=== PATIENT | female | born 2000 | race Caucasian/White ===

== ENCOUNTER 2020-10-24 18:41 | Emergency (ER) | payer MEDICARE, MEDICAID ==
[~2020-10-24] VITALS: Ht 167.7 cm; Wt 86.2 kg
[2020-10-24] MEDS ORDERED: KETOROLAC 30 MG/ML VIAL IVP ONE (19:15)
[2020-10-24] MEDS ORDERED: LACTATED RINGERS 1,000 ML IV ONE (19:15)
[2020-10-24 19:17] LABS: BASOPHILS # (AUTO) 0.1 10^3/uL (0.0-0.1); BASOPHILS % (AUTO) 1 % (0-10); EOSINOPHILS # (AUTO) 0.7 10^3/uL (0.0-0.3); EOSINOPHILS % (AUTO) 8 % (0-10); HEMATOCRIT 41 % (35-52); HEMOGLOBIN 13.9 g/dL (11.5-16.0); LYMPHOCYTES # (AUTO) 3.5 10^3/uL (1.0-4.0); LYMPHOCYTES % (AUTO) 40 % (12-44); MEAN CORPUSCULAR HEMOGLOBIN 31 pg (25-34); MEAN CORPUSCULAR HGB CONC 34 g/dL (32-36); MEAN CORPUSCULAR VOLUME 91 fL (80-99); MEAN PLATELET VOLUME 9.8 fL (9.0-12.2); MONOCYTES # (AUTO) 0.9 10^3/uL (0.0-1.0); MONOCYTES % (AUTO) 10 % (0-12); NEUTROPHILS # (AUTO) 3.6 10^3/uL (1.8-7.8); NEUTROPHILS % (AUTO) 41 % (42-75); PLATELET COUNT 269 10^3/uL (130-400); WHITE BLOOD COUNT 8.7 10^3/uL (4.3-11.0)
[2020-10-24] MEDS ORDERED: FAMOTIDINE 20MG/2ML IV (PEPCID) IV STA (19:19)
--- NOTE | 2020-10-24 19:19 | ED Chest Pain ---
General Chief Complaint: Chest Pain Stated Complaint: CHEST PAIN/LEG PAIN Source: patient Exam Limitations: no limitations History of Present Illness Date Seen by Provider: Oct 24, 2020 Time Seen by Provider: 18:55 Initial Comments Patient to the ER by private conveyance with chief complaint that she is having chest pain for the past 1 to 2 years substernal left-sided reproducible to direct palpation and deep inspiration. No cough but some mild shortness of air. No fever chills or sick contacts lately. Her symptoms have only mildly progressed recently. She has no history of asthma COPD or heart disease. She also has noted fast heart rate in the past but has never sought a primary care doctor to get this worked up. She also was having some leg pain in her left femur at the site of a prior surgery where she had a bone tumor taken out about 6 years ago. She says it has hurt ever since pretty much every single day. She is tried ibuprofen Tylenol and [place] balm with no benefit. She does see a psychiatrist and she knew where she lives but is looking to move to [place] and wanted to come here to get checked out so she can get established and find a doctor in [place] when she moves here. Her psychiatrist thought maybe some of her chest wall pain was related to her medications so they stopped them however pain did not go away. She is on Seroquel. Allergies and Home Medications Allergies Coded Allergies: ceftriaxone (Verified Adverse Reaction, Unknown, mono rash, 10/24/20) Patient Home Medication List Home Medication List Reviewed: Yes Review of Systems Review of Systems Constitutional: No chills, No fever, No malaise EENTM: No Blurred Vision, No Double Vision Respiratory: Denies Cough; Shortness of Air Cardiovascular: Chest Pain; Denies Edema, Denies Lightheadedness Gastrointestinal: Denies Constipated, Denies Diarrhea, Denies Nausea Genitourinary: Denies Burning, Denies Discharge Musculoskeletal: No back pain, No joint pain Psychiatric/Neurological: Denies Anxiety, Denies Depressed All Other Systems Reviewed Negative Unless Noted: Yes Past [id number] Hx Patient Social History Alcohol Use: Denies Use Drug of Choice: Denies Smoking Status: Current Everyday Smoker Type Used: Cigarettes (Quarter pack per day) Physical Exam Vital Signs Vital Signs - First Documented 10/24/20 18:56 Temp 35.9 Pulse 115 Resp 18 B/P (MAP) 141/88 (105) Pulse Ox 98 O2 Delivery Room Air Capillary Refill : Height, Weight, BMI Height: '" Weight: lbs. oz. kg; BMI Method: General Appearance: No Apparent Distress, WD/WN HEENT: PERRL/EOMI, Pharynx Normal, Moist Mucous Membranes Neck: Full Range of Motion, Normal Inspection Respiratory: No Chest Non Tender (Chest wall is tender and reproduces symptoms on direct palpation over the left anterior chest); Lungs Clear, Normal Breath Sounds, No Accessory Muscle Use, No Respiratory Distress Cardiovascular: Regular Rate, Rhythm, No Edema, Normal Peripheral Pulses Gastrointestinal: Normal Bowel Sounds, No Organomegaly Neurologic/Psychiatric: Alert, Oriented x3 Skin: Normal Color, Warm/Dry Progress/Results/Core Measures Results/Orders Lab Results Laboratory Tests Test 10/24/20 19:10 10/24/20 19:13 Range/Units White Blood Count 8.7 4.3-11.0 10^3/uL Red Blood Count 4.50 3.80-5.11 10^6/uL Hemoglobin 13.9 11.5-16.0 g/dL Hematocrit 41 35-52 % Mean Corpuscular Volume 91 80-99 fL Mean Corpuscular Hemoglobin 31 25-34 pg Mean Corpuscular Hemoglobin Concent 34 32-36 g/dL Red Cell Distribution Width 12.1 10.0-14.5 % Platelet Count 269 130-400 10^3/uL Mean Platelet Volume 9.8 9.0-12.2 fL Immature Granulocyte % (Auto) 0 % Neutrophils (%) (Auto) 41 L 42-75 % Lymphocytes (%) (Auto) 40 12-44 % Monocytes (%) (Auto) 10 0-12 % Eosinophils (%) (Auto) 8 0-10 % Basophils (%) (Auto) 1 0-10 % Neutrophils # (Auto) 3.6 1.8-7.8 10^3/uL Lymphocytes # (Auto) 3.5 1.0-4.0 10^3/uL Monocytes # (Auto) 0.9 0.0-1.0 10^3/uL Eosinophils # (Auto) 0.7 H 0.0-0.3 10^3/uL Basophils # (Auto) 0.1 0.0-0.1 10^3/uL Immature Granulocyte # (Auto) 0.0 0.0-0.1 10^3/uL Sodium Level 141 135-145 MMOL/L Potassium Level 3.9 3.6-5.0 MMOL/L Chloride Level 108 H 98-107 MMOL/L Carbon Dioxide Level 22 21-32 MMOL/L Anion Gap 11 5-14 MMOL/L Blood Urea Nitrogen 13 7-18 MG/DL Creatinine 0.82 0.60-1.30 MG/DL Estimat Glomerular Filtration Rate > 60 BUN/Creatinine Ratio 16 Glucose Level 110 H 70-105 MG/DL Calcium Level 8.8 8.5-10.1 MG/DL Corrected Calcium 8.5 8.5-10.1 MG/DL Total Bilirubin 0.2 0.1-1.0 MG/DL Aspartate Amino Transf (AST/SGOT) 17 5-34 U/L Alanine Aminotransferase (ALT/SGPT) 24 0-55 U/L Alkaline Phosphatase 66 40-136 U/L C-Reactive Protein High Sensitivity 0.25 0.00-0.50 MG/DL Total Protein 6.6 6.4-8.2 GM/DL Albumin 4.4 3.2-4.5 GM/DL Urine Color YELLOW Urine Clarity CLEAR Urine pH 6.0 5-9 Urine Specific Sandwich 1.025 H 1.016-1.022 Urine Protein NEGATIVE NEGATIVE Urine Glucose (UA) NEGATIVE NEGATIVE Urine Ketones TRACE H NEGATIVE Urine Nitrite NEGATIVE NEGATIVE Urine Bilirubin NEGATIVE NEGATIVE Urine Urobilinogen 0.2 < = 1.0 MG/DL Urine Leukocyte Esterase NEGATIVE NEGATIVE Urine RBC (Auto) NEGATIVE NEGATIVE Urine RBC NONE /HPF Urine WBC NONE /HPF Urine Squamous Epithelial Cells 2-5 /HPF Urine Crystals NONE /LPF Urine Bacteria TRACE /HPF Urine Casts NONE /LPF Urine Mucus SMALL H /LPF Urine Culture Indicated NO Urine Opiates Screen NEGATIVE NEGATIVE Urine Oxycodone Screen NEGATIVE NEGATIVE Urine Methadone Screen NEGATIVE NEGATIVE Urine Propoxyphene Screen NEGATIVE NEGATIVE Urine Barbiturates Screen NEGATIVE NEGATIVE Ur Tricyclic Antidepressants Screen NEGATIVE NEGATIVE Urine Phencyclidine Screen NEGATIVE NEGATIVE Urine Amphetamines Screen NEGATIVE NEGATIVE Urine Methamphetamines Screen NEGATIVE NEGATIVE Urine Benzodiazepines Screen NEGATIVE NEGATIVE Urine Cocaine Screen NEGATIVE NEGATIVE Urine Cannabinoids Screen NEGATIVE NEGATIVE My Orders Orders - MONALISA LEONE Ekg Tracing (10/24/20 18:49) Continuous Ekg Monitoring (10/24/20 18:49) Ua Culture If Indicated (10/24/20 18:49) Urine Bedside (10/24/20 18:49) Cbc With Automated Diff (10/24/20 19:09) Comprehensive Metabolic Panel (10/24/20 19:09) Hs C Reactive Protein (10/24/20 19:09) Chest 1 View, Ap/Pa Only (10/24/20 19:09) Ed Iv/Invasive Line Start (10/24/20 19:12) Lactated Ringers (Lr 1000 Ml Iv Solution (10/24/20 19:15) Drug Screen Stat (Urine) (10/24/20 19:12) Ketorolac Injection (Toradol Injection) (10/24/20 19:15) Lidocaine 2% Viscous 15 Ml (Xylocaine Vi (10/24/20 19:30) Antacid Suspension (Mylanta Suspension (10/24/20 19:30) Famotidine Injection (Pepcid Injection) (10/24/20 19:19) Gabapentin Capsule/Tablet (Neurontin Cap (10/24/20 20:00) Medications Given in ED Current Medications Medications Dose Ordered Sig/Earline Route Start Time Stop Time Status Last Admin Dose Admin Al Hydrox/Mg Hydrox/Simethicone 30 ml ONCE ONCE PO 10/24/20 19:30 10/24/20 19:31 DC 10/24/20 19:34 30 ML Gabapentin 200 mg ONCE ONCE PO 10/24/20 20:00 10/24/20 20:01 DC 10/24/20 20:33 200 MG Ketorolac Tromethamine 30 mg ONCE ONCE IVP 10/24/20 19:15 10/24/20 19:16 DC 10/24/20 19:34 30 MG Lactated Ringer's 1,000 ml @ 0 mls/hr Q0M ONCE IV 10/24/20 19:15 10/24/20 19:16 DC 10/24/20 19:33 0 MLS/HR Lidocaine HCl 15 ml ONCE ONCE PO 10/24/20 19:30 10/24/20 19:31 DC 10/24/20 19:34 15 ML Vital Signs/I&O 10/24/20 10/24/20 18:56 18:56 Temp 35.9 Pulse 115 Resp 18 B/P (MAP) 141/88 (105) Pulse Ox 98 O2 Delivery Room Air Room Air Progress Progress Note #1: Time: 19:17 Progress Note We will try a GI cocktail for her chest pain and some Toradol for her leg pain. We will try to give her some fluids for her sinus tachycardia seen on EKG. Several years of pain points more towards a costochondritis scenario. We will get some labs to rule out myocarditis or other more acute syndromes since she says it has progressed here recently. We have strongly encouraged her to follow-up with primary care to further explore this. Progress Note #2: Time: 20:01 Progress Note GI cocktail did not help her chest pain and Toradol did not help her chest or he r leg. Suspect there could be some component of fibromyalgia to this pain since it is so recalcitrant to treatment. Still her chest pain seems to be costochondritis. Labs and EKG are normal. Plan to dose her with gabapentin 200 mg. Her heart rate has significantly improved after about 250 cc of fluid. We will let her get the rest of her liter of fluid she is down to the 80s now. She is quietly texting on her phone and rates her pain still as an 8 out of 10. If the gabapentin does not help in the next step would be to have her follow-up with a primary care doctor. Initial ECG Impression Date: Oct 24, 2020 Initial ECG Impression Time: 18:58 Initial ECG Rate: 120 Initial ECG Rhythm: S.Tach Initial ECG Intervals: QT (478) Initial ECG Impression: Normal, Nonspecific Changes Initial ECG Comparisson: No Previous ECG Available Comment Sinus tachycardia without clinically relevant ST elevation or depression. Diagnostic Imaging Diagonstic Imaging: Xray Plain Films/CT/US/NM/MRI: chest (1v) Comments NAME: [facility] REC#: [id number] PT STATUS: REG ER : 2000 PHYSICIAN: MONALISA LEONE MD ADMIT DATE: 10/24/20/ER Draft Date of Exam:10/24/20 CHEST 1 VIEW, AP/PA ONLY INDICATION: Chest pain AP view of the chest is obtained. FINDINGS: Heart size and pulmonary vascularity are within normal limits, and the lungs are clear, bilaterally. IMPRESSION: Unremarkable chest. Dictated on workstation # [id number] Dict: 10/24/201942 Trans: 10/24/201952 [place] [phone] Interpreted by: SHIN MINOR MD Electronically signed by: Reviewed: Reviewed by Me Departure Impression Primary Impression: Chronic leg pain Qualified Codes: M79.605 - Pain in left leg; G89.29 - Other chronic pain Additional Impression: Costochondritis Disposition: HOME, SELF-CARE Condition: Stable Departure-Patient Inst. Decision time for Depature: 20:47 Referrals: NO,LOCAL PHYSICIAN (PCP/Family) Primary Care Physician Patient Instructions: Chronic Pain, Costochondritis, LOCAL PHYSICIAN LIST Add. Discharge Instructions: I highly encourage you to establish care with a primary care provider of your choice. I have included a list of doctors you can engage locally. Drink plenty of fluids, continue to use Tylenol, ibuprofen and topical creams. I recommend topical creams with capsaicin oil for your leg every 4 hours as needed. When you see your primary care doctor you can discuss what medications have helped and not helped and go from there. All discharge instructions reviewed with patient and/or family. Voiced understanding. MONALISA LEONE Oct 24, 2020 19:19
[2020-10-24 19:20] LABS: BILIRUBIN,URINE NEGATIVE (NEGATIVE); CLARITY,URINE CLEAR; COLOR,URINE YELLOW; GLUCOSE, URINE (UA) NEGATIVE (NEGATIVE); KETONES,URINE TRACE (NEGATIVE); LEUKOCYTE ESTERASE ,URINE NEGATIVE (NEGATIVE); NITRITE,URINE NEGATIVE (NEGATIVE); PROTEIN,URINE NEGATIVE (NEGATIVE)
[2020-10-24 19:26] LABS: BACTERIA,URINE TRACE /HPF
[2020-10-24 19:28] LABS: ALBUMIN 4.4 GM/DL (3.2-4.5); CHLORIDE 108 MMOL/L (98-107); POTASSIUM 3.9 MMOL/L (3.6-5.0); SODIUM 141 MMOL/L (135-145)
[2020-10-24 19:29] LABS: CALCIUM 8.8 MG/DL (8.5-10.1)
[2020-10-24] MEDS ORDERED: LIDOCAINE 2% VISCOUS 15 ML UDC PO ONE (19:30)
[2020-10-24] MEDS ORDERED: ANTACID SUSP 30 ML UDC (MYLANTA) PO ONE (19:30)
[2020-10-24 19:31] LABS: AMPHETAMINE SCREEN, URINE NEGATIVE (NEGATIVE); BARBITURATE SCREEN URINE NEGATIVE (NEGATIVE); BENZODIAZEPINES SCREEN URINE NEGATIVE (NEGATIVE); CANNABINOID SCREEN, URINE NEGATIVE (NEGATIVE); COCAINE SCREEN URINE NEGATIVE (NEGATIVE); METHADONE STAT NEGATIVE (NEGATIVE); METHAMPHETAMINE SCREEN URINE S NEGATIVE (NEGATIVE); OPIATE SCREEN URINE NEGATIVE (NEGATIVE); OXYCODONE STAT NEGATIVE (NEGATIVE); PROPOXYPHENE STAT NEGATIVE (NEGATIVE); TRICYCLIC ANTIDEPRESSANTS SCRE NEGATIVE (NEGATIVE)
[2020-10-24 19:31] LABS: GLUCOSE 110 MG/DL (70-105); TOTAL PROTEIN 6.6 GM/DL (6.4-8.2)
[2020-10-24 19:32] LABS: BILIRUBIN,TOTAL 0.2 MG/DL (0.1-1.0); CARBON DIOXIDE 22 MMOL/L (21-32)
[2020-10-24 19:34] LABS: ALKALINE PHOSPHATASE 66 U/L (40-136); CREATININE SERUM 0.82 MG/DL (0.60-1.30); GFR ESTIMATED > 60
[2020-10-24 19:35] LABS: BUN/CREATININE RATIO 16
[2020-10-24 19:37] LABS: ALANINE AMINOTRANSFERASE 24 U/L (0-55)
--- NOTE | 2020-10-24 19:54 | Diagnostic Imaging Report ---
INDICATION: Chest pain AP view of the chest is obtained. FINDINGS: Heart size and pulmonary vascularity are within normal limits, and the lungs are clear, bilaterally. IMPRESSION: Unremarkable chest. Dictated by: Dictated on workstation # [id number]
[2020-10-24] MEDS ORDERED: GABAPENTIN 100 MG (NEURONTIN) CAP PO ONE (20:00)
[2020-10-24 21:00] VITALS: BP 107/78
== END 2020-10-24 21:01 | disposition home or self-care (01) ==
LOC: ER 18:45
DX: G89.29 Other chronic pain (principal); M79.605 Pain in left leg; M94.0 Chondrocostal junction syndrome [Tietze]; I10 Essential (primary) hypertension; F17.210 Nicotine dependence, cigarettes, uncomplicated; Z88.1 Allergy status to other antibiotic agents
CPT/HCPCS: 36415; 71045; 80053; 80306; 81000; 84703; 85025; 86141; 93005; 96374; 96375